=== PATIENT | female | born 1990 | race Hispanic/Latino ===

== ENCOUNTER 2019-01-18 14:38 | Emergency (ER) | payer SELFPAY ==
--- OUTSIDE RECORDS SUMMARY | 2019-01-18 14:41 | XMS REPORT | Summary of Care ---
:1990 Author Organization [facility] - Health Address [address] [place] [address] Care Team Providers Name Role Phone Nat Voss Primary Care Provider Encounter Details Date Type Department Care Team Description 01/16/2019 Orders Only [facility] Doctor Unassigned, No 301 [facility] Name [place] [id number] [address] [place] [address] Allergies No Known Allergiesdocumented as of this encounter (statuses as of 01/16/2019) Medications Not on filedocumented as of this encounter (statuses as of 01/16/2019) Active Problems Not on filedocumented as of this encounter (statuses as of 01/16/2019) Social History Tobacco Use Types Packs/Day Years Used Date Never Assessed Sex Assigned at Date Recorded Not on file Job Start Date Occupation Industry Not on file Not on file Not on file Travel History Travel Start Travel End No recent travel history available. documented as of this encounter Last Filed Vital Signs Not on filedocumented in this encounter Plan of Treatment Date Type Specialty Care Team Description 01/16/2019 Office Visit OB Nat Colon FNP [address] [place] [address] [phone] Arrived 1, [facility] 01/16/2019 Initial Visit OB Nat Colon FNP [address] [place] [address] Health Maintenance Due Date Last Done Comments VARICELLA VACCINES (1 of 2 - 13+ 12/25/2004 2-dose series) DTaP,Tdap,and Td Vaccines (1 - 12/25/2010 Tdap) PAP SMEAR 12/25/2012 INFLUENZA VACCINE (#1) 2019 PNEUMOCOCCAL 0-64 YEARS COMBINED Aged Out No longer eligible based on SERIES patient's age to complete this topic documented as of this encounter Procedures Procedure Name Priority Date/Time Associated Diagnosis Comments ASSIGNMENT OF BENEFITS Routine 01/16/2019 9:14 AM CDT documented in this encounter Results Not on filedocumented in this encounter
--- OUTSIDE RECORDS SUMMARY | 2019-01-18 14:41 | XMS REPORT ---
:1990 [facility] Address [address] [place] [address] Dr. Williamson [address] [place] [id number] Care Team Providers Name Role Phone Unavailable Unavailable Unavailable Problems This patient has no known problems. Allergies, Adverse Reactions, Alerts This patient has no known allergies or adverse reactions. Medications This patient has no known medications.
[2019-01-18 16:23] LABS: Absolute Lymphocytes (CBC) 1.5 K/uL (0.7-4.9); Basophils % 0.1 % (0-1.3); Hematocrit 39.3 % (36.0-45.0); Lymphocytes % 18.6 % (15.3-44.8); MPV 9.2 fL (7.6-11.3); RBC Red Blood Cell Count 4.21 M/uL (3.86-4.86)
[2019-01-18 16:30] LABS: Urine Blood 2+ (NEG); Urine Glucose NEGATIVE (NEG); Urine Protein NEGATIVE (NEG); Urine pH 6.5 (5.0-7.0)
[2019-01-18 16:34] LABS: BUN Blood Urea Nitrogen 11 mg/dL (7-18); Bicarbonate 23 mmol/L (21-32); Glucose Level 80 mg/dL (74-106); Potassium 4.1 mmol/L (3.5-5.1); Sodium Level 139 mmol/L (136-145)
[2019-01-18] MEDS ORDERED: PROPOFOL 200 MG/20 ML VIAL IV ONE (17:04)
[2019-01-18] MEDS ORDERED: LIDOCAINE 2% MPF 5 ML VIAL ONE (17:05)
[2019-01-18] MEDS ORDERED: FENTANYL CITR 100 MCG/2 ML ONE (17:05)
[2019-01-18] MEDS ORDERED: ROCURONIUM 50 MG/5 ML VIAL IV ONE (17:05)
[2019-01-18] MEDS ORDERED: MIDAZOLAM HCL 2 MG/2 ML INJ ONE (17:44)
[2019-01-18] MEDS ORDERED: KETOROLAC 30 MG/ML INJ ONE (18:16)
[2019-01-18] MEDS ORDERED: ONDANSETRON 4 MG/2 ML VIAL ONE (18:17)
[2019-01-18] MEDS ORDERED: dexAMETHasone 10 MG/ML VIAL ONE (18:17)
[2019-01-18] MEDS ORDERED: GLYCOPYRROLATE 0.2 MG/ML SYR ONE (18:23)
--- NOTE | 2019-01-18 18:23 | EDPHYS ---
Physician Documentation [facility] Name: Erika Ely Age: 28 yrs Sex: Female : 1990 Arrival Date: 01/18/2019 Time: 14:41 Bed 27 Private MD: ED Physician Akash Biswas HPI: 01/18 18:19 This 28 yrs old Female presents to ER via Ambulatory with complaints of dc Vaginal Bleeding, + Preg <12wks. 18:19 The patient presents to the emergency department with abdominal pain, of the suprapubic dc area, that started yesterday, vaginal bleeding, that is light. The estimated gestational age is 5 weeks. Previous pregnancies: in previous pregnancies patient has had preeclampsia. Associated signs and symptoms: The patient has no apparent associated signs or symptoms. The patient has not experienced similar symptoms in the past. The patient has not recently seen a physician. 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 - Social history:: Smoking status: Patient/guardian denies using tobacco. - Ebola Screening: : No symptoms or risks identified at this time. ROS: 18:19 Constitutional: Negative for fever, chills, and weight loss, Eyes: Negative for injury, nh pain, redness, and discharge, ENT: Negative for injury, pain, and discharge, Neck: Negative for injury, pain, and swelling, Cardiovascular: Negative for chest pain, palpitations, and edema, Respiratory: Negative for shortness of breath, cough, wheezing, and pleuritic chest pain, Abdomen/GI: Negative for abdominal pain, nausea, vomiting, diarrhea, and constipation, Back: Negative for injury and pain, MS/Extremity: Negative for injury and deformity, Skin: Negative for injury, rash, and discoloration, Neuro: Negative for headache, weakness, numbness, tingling, and seizure, Psych: Negative for depression, anxiety, suicide ideation, homicidal ideation, and hallucinations, Allergy/Immunology: Negative for hives, rash, and allergies, Endocrine: Negative for neck swelling, polydipsia, polyuria, polyphagia, and marked weight changes, Hematologic/Lymphatic: Negative for swollen nodes, abnormal bleeding, and unusual bruising. 18:19 : Positive for pelvic pain, vaginal bleeding, missed period. Exam: 18:19 Constitutional: This is a well developed, well nourished patient who is awake, alert, nh and in no acute distress. Head/Face: Normocephalic, atraumatic. Eyes: Pupils equal round and reactive to light, extra-ocular motions intact. Lids and lashes normal. Conjunctiva and sclera are non-icteric and not injected. Cornea within normal limits. Periorbital areas with no swelling, redness, or edema. ENT: Nares patent. No nasal discharge, no septal abnormalities noted. Tympanic membranes are normal and external auditory canals are clear. Oropharynx with no redness, swelling, or masses, exudates, or evidence of obstruction, uvula midline. Mucous membranes moist. Neck: Trachea midline, no thyromegaly or masses palpated, and no cervical lymphadenopathy. Supple, full range of motion without nuchal rigidity, or vertebral point tenderness. No Meningismus. Chest/axilla: Normal chest wall appearance and motion. Nontender with no deformity. No lesions are appreciated. Cardiovascular: Regular rate and rhythm with a normal S1 and S2. No gallops, murmurs, or rubs. Normal PMI, no JVD. No pulse deficits. Respiratory: Lungs have equal breath sounds bilaterally, clear to auscultation and percussion. No rales, rhonchi or wheezes noted. No increased work of breathing, no retractions or nasal flaring. Abdomen/GI: Soft, non-tender, with normal bowel sounds. No distension or tympany. No guarding or rebound. No evidence of tenderness throughout. Back: No spinal tenderness. No costovertebral tenderness. Full range of motion. Pelvic Exam: Normal external genitalia. Speculum exam with closed cervical os, no discharge or bleeding noted. Bimanual exam with normal adnexa, no adnexal or cervical motion tenderness. Normal uterus. Female : Normal external genitalia. Skin: Warm, dry with normal turgor. Normal color with no rashes, no lesions, and no evidence of cellulitis. MS/ Extremity: Pulses equal, no cyanosis. Neurovascular intact. Full, normal range of motion. Vital Signs: 14:59 BP 139 / 83; Pulse 77; Resp 16 S; Temp 97.8(TE); Pulse Ox 98% on R/A; Pain 2/10; aa5 15:42 BP 106 / 65; Pulse 82; Resp 17 S; Pulse Ox 98% on R/A; ca1 17:13 BP 106 / 64; Pulse 71; Resp 18 S; Pulse Ox 98% on R/A; ca1 18:18 BP 113 / 77; Pulse 75; Resp 17 S; Pulse Ox 100% on R/A; ca1 MDM: 15:25 Patient medically screened. nh 18:19 Data reviewed: vital signs, nurses notes, lab test result(s), radiologic studies, I nh have discussed the patient's presentation/case with the attending Emergency Department Physician; and as a result, I will discharge patient. Counseling: I had a detailed discussion with the patient and/or guardian regarding: the historical points, exam findings, and any diagnostic results supporting the discharge/admit diagnosis, lab results, radiology results, the need for outpatient follow up, to return to the emergency department if symptoms worsen or persist or if there are any questions or concerns that arise at home. 01/18 15:42 Order name: Urine Dipstick--Ancillary (enter results); Complete Time: 16:56 bd 01/18 15:42 Order name: Urine --Ancillary (enter results); Complete Time: 16:56 bd 01/18 15:49 Order name: Abo/rh Typing; Complete Time: 18:04 ca1 01/18 15:49 Order name: Basic Metabolic Panel; Complete Time: 16:56 ca1 01/18 15:49 Order name: CBC with Diff; Complete Time: 16:56 ca1 01/18 16:56 Order name: HCG-Quantitative; Complete Time: 18:04 dc 01/18 15:49 Order name: IV Saline Lock; Complete Time: 15:49 ca1 01/18 15:49 Order name: Labs collected and sent; Complete Time: 15:49 ca1 01/18 15:49 Order name: NPO; Complete Time: 15:49 ca1 01/18 15:49 Order name: Urine Dipstick-Ancillary (obtain specimen); Complete Time: 15:50 ca1 01/18 16:56 Order name: US Transvaginal Ob nh Administered Medications: No medications were administered Disposition: 01/19 07:36 Co-signature as Attending Physician, Akash Biswas MD. rn Disposition: 01/18/19 18:21 Discharged to Home. Impression: Threatened . - Condition is Stable. - Discharge Instructions: Threatened Miscarriage. - Medication Reconciliation Form, Thank You Letter, Antibiotic Education, Prescription Opioid Use form. - Follow up: Private Physician; When: 48 Hours; Reason: Recheck today's complaints. - Problem is new. - Symptoms are unchanged. Signatures: Dispatcher [employer] EDMS Kaia Gutierres, SPEAR FISHER SPEAR FISHER dc Akash Biswas MD MD rn Cadence Mena RN RN aa5 Dominga Gonzalez RN RN ca1 Corrections: (The following items were deleted from the chart) 01/18 18:34 18:21 01/18/2019 18:21 Discharged to Home. Impression: Threatened . Condition ca1 is Stable. Forms are Medication Reconciliation Form, Thank You Letter, Antibiotic Education, Prescription Opioid Use. Follow up: Private Physician; When: 48 Hours; Reason: Recheck today's complaints. Problem is new. Symptoms are unchanged. nh
--- NOTE | 2019-01-18 18:23 | ER ---
Nurse's Notes [facility] Name: Erika Ely Age: 28 yrs Sex: Female : 1990 Arrival Date: 01/18/2019 Time: 14:41 Bed 27 Private MD: Diagnosis: Threatened Presentation: 01/18 14:58 Presenting complaint: Patient states: "I am about 8 weeks and I started aa5 spotting on Sunday but it went away and I started spotting again today". Pt also c/o lower back pain. Transition of care: patient was not received from another setting of care. Onset of symptoms was January 18, 2019. Risk Assessment: Do you want to hurt yourself or someone else? Patient reports no desire to harm self or others. Initial Sepsis Screen: Does the patient meet any 2 criteria? No. Patient's initial sepsis screen is negative. Does the patient have a suspected source of infection? No. Patient's initial sepsis screen is negative. Care prior to arrival: None. 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 - Social history:: Smoking status: Patient/guardian denies using tobacco. - Ebola Screening: : No symptoms or risks identified at this time. Screenin:39 Abuse screen: Denies threats or abuse. Denies injuries from another. Nutritional ca1 screening: No deficits noted. Tuberculosis screening: No symptoms or risk factors identified. Fall Risk None identified. Assessment: 15:39 General: Appears in no apparent distress. comfortable, Behavior is calm, cooperative, ca1 appropriate for age. Pain: Complains of pain in low back area Pain radiates to right lower quadrant and left lower quadrant Pain currently is 2 out of 10 on a pain scale. Quality of pain is described as crampy, Pain began 1 day ago. Is intermittent. Neuro: Level of Consciousness is awake, alert, obeys commands, Oriented to person, place, time, situation. Cardiovascular: Heart tones S1 S2 present Capillary refill < 3 seconds Patient's skin is warm and dry. Respiratory: Airway is patent Respiratory effort is even, unlabored, Respiratory pattern is regular, symmetrical. GI: Abdomen is round non-distended, Bowel sounds present X 4 quads. Abd is soft and non tender X 4 quads. : Reports vaginal bleeding that is spotty, since Sunday but worst today. EENT: No deficits noted. No signs and/or symptoms were reported regarding the EENT system. Derm: Skin is intact, is healthy with good turgor, Skin is pink, warm \\T\\ dry. Musculoskeletal: Circulation, motion, and sensation intact. Capillary refill < 3 seconds, Range of motion: intact in all extremities. 15:42 Reassessment: Provider at bedside. ca1 17:13 Reassessment: Patient appears in no apparent distress at this time. Patient and/or ca1 family updated on plan of care and expected duration. Pain level reassessed. Patient is alert, oriented x 3, equal unlabored respirations, skin warm/dry/pink. 18:18 Reassessment: Patient appears in no apparent distress at this time. Patient and/or ca1 family updated on plan of care and expected duration. Pain level reassessed. Patient is alert, oriented x 3, equal unlabored respirations, skin warm/dry/pink. US done, pending results. Vital Signs: 14:59 BP 139 / 83; Pulse 77; Resp 16 S; Temp 97.8(TE); Pulse Ox 98% on R/A; Pain 2/10; aa5 15:42 BP 106 / 65; Pulse 82; Resp 17 S; Pulse Ox 98% on R/A; ca1 17:13 BP 106 / 64; Pulse 71; Resp 18 S; Pulse Ox 98% on R/A; ca1 18:18 BP 113 / 77; Pulse 75; Resp 17 S; Pulse Ox 100% on R/A; ca1 ED Course: 14:41 Patient arrived in ED. as 14:58 Triage completed. aa5 14:58 Arm band placed on. aa5 15:25 Dominga Gonzalez, NATHANAEL is Primary Nurse. ca1 15:25 Kaia Gutierres FNP is PHCP. nh 15:25 Akash Biswas MD is Attending Physician. nh 15:39 Placed in gown. Bed in low position. Call light in reach. Side rails up X 1. Pulse ox ca1 on. NIBP on. Warm blanket given. 15:39 No provider procedures requiring assistance completed. ca1 15:50 Inserted saline lock: 20 gauge in right antecubital area, using aseptic technique. ca1 Blood collected. 17:06 HCG-Quantitative Sent. lt1 18:33 Ultrasound completed. Patient tolerated well. Notified CABIN WORKER/PA . sg3 18:33 IV discontinued, intact, bleeding controlled, No redness/swelling at site. Pressure ca1 dressing applied. 18:41 US Transvaginal Ob In Process Unspecified. EDMS Administered Medications: No medications were administered Outcome: 18:21 Discharge ordered by . az 18:33 Discharged to home ambulatory, with significant other. ca1 18:33 Condition: stable 18:33 Discharge instructions given to patient, Instructed on discharge instructions, follow up and referral plans. Demonstrated understanding of instructions, medications. 18:34 Patient left the ED. ca1 Signatures: Dispatcher [employer] EDMS Kaia Gutierres, FIELD TECHNICAL SPECIALIST FIELD TECHNICAL SPECIALIST az Melissa Maddox Audri, RN RN aa5 Starla Bassettah sg3 Dominga Gonzalez, RN RN ca1 Anay Garcia lt1
[2019-01-18] MEDS ORDERED: NEOSTIGMINE 1 MG/ML -10 ML VIAL ONE (18:24)
--- NOTE | 2019-01-18 19:50 | RAD REPORT ---
EXAM DESCRIPTION: US - Transvaginal OB - 01/18/2019 6:39 pm CLINICAL HISTORY: Pelvic pain, COMPARISON: None. FINDINGS: Right ovary contains a 14 millimeter anechoic cysts. A larger 3 centimeter thin-walled ane choic cyst is present adjacent to the right ovary. Small amount of free fluid is present adjacent to the right ovary. Free fluid extends in the cul de sac. Left ovary shows no suspicious finding. Uterus is normal size. No myometrial mass. The small round fluid collection is present and may be a n ormal shaped but very early gestational sac. Average sac diameter corresponds to a 5 week 1 day age. Within this structure there is no yolk sac or pole. No intrauterine hematoma. IMPRESSION: A 5 week 1 day sized fluid collection in the fundus of the uterus may represent an early intrauterine gestation. No yolk sac or pole present. No suspicious adnexal masses. A 3 cm anechoic right paraovarian cyst is present with a 14 millimeter anechoic right ovarian cyst.
[2019-01-18 21:43] VITALS: TEMP 97.8
[2019-01-18 21:47] VITALS: BP 113/77; O2SAT 100
== END 2019-01-18 18:34 | disposition home or self-care (01) ==
LOC: ER 14:38
DX: O20.0 Threatened abortion (principal)
CPT/HCPCS: 36415; 76817; 80048; 81003; 81025; 84702; 85025; 86900; 86901; 99284; J1100; J2250; J2405; J2704; J2710; J3010